=== PATIENT | male | born 1975 | race Hispanic/Latino ===

== ENCOUNTER 2016-12-16 17:02 | Emergency (ER) | payer BC ==
[2016-12-16] MEDS ORDERED: Naproxen 550 mg Tab PO STA (17:45)
[2016-12-16 17:54] VITALS: PULSE 89; RESP 16; TEMP 98.4; O2SAT 97; BMI 38.4
--- NOTE | 2016-12-16 17:55 | ED PDOC ---
Arrival/HPI - General Time Seen by Provider: 12/16/16 17:16 Historian: Patient - History of Present Illness Narrative History of Present Illness (Text): 12/16/16 17:45 A 41 year old male, whose past medical history includes , presents to the emergency department complaining of left lower wisdom tooth pain for several days. Patient reports he is visiting from [place]. He requests for antibiotics prior to visting dentist this week. Patient has no other complaints. No PMD Time/Duration: Other (several days) Symptom Onset: Sudden Symptom Course: Unchanged Past Medical History - Provider Review Nursing Documentation Reviewed: Yes - Infectious Disease Hx of Infectious Diseases: None - Psychiatric Hx Depression: No Hx Emotional Abuse: No Hx Physical Abuse: No Hx Substance Use: No - Anesthesia Hx Anesthesia: No - Suicidal Assessment Feels Threatened In Home Enviroment: No Family/Social History - Physician Review Nursing Documentation Reviewed: Yes Family/Social History: No Known Family HX Smoking Status: Current Some Days Smoker Hx Alcohol Use: Yes Hx Substance Use: No Allergies/Home Meds Allergies/Adverse Reactions: Allergies No Known Allergies Allergy (Verified 10/14/11 08:21) Review of Systems - Physician Review All systems were reviewed & negative as marked: Yes - Review of Systems Constitutional: Other (lower left wisdom tooth pain) Gastrointestinal: absent: Nausea, Vomiting Physical Exam - Systems Exam Head: Present: Atraumatic, Normocephalic Pupils: Present: PERRL Extroacular Muscles: Present: EOMI Conjunctiva: Present: Normal Mouth: No: Normal Teeth (carries to lower left lew), Other (no buccal swelling) Neck: Present: Normal Range of Motion Respiratory/Chest: Present: Clear to Auscultation, Good Air Exchange. No: Respiratory Distress, Accessory Muscle Use Cardiovascular: Present: Regular Rate and Rhythm, Normal S1, S2. No: Murmurs Abdomen: Present: Normal Bowel Sounds. No: Tenderness, Distention, Peritoneal Signs Back: Present: Normal Inspection Upper Extremity: Present: Normal Inspection. No: Cyanosis, Edema Lower Extremity: Present: Normal Inspection. No: Edema Neurological: Present: GCS=15, CN II-XII Intact, Speech Normal Skin: Present: Warm, Dry, Normal Color. No: Rashes Psychiatric: Present: Alert, Oriented x 3, Normal Insight, Normal Concentration Medical Decision Making ED Course and Treatment: 12/16/16 17:50 Impression: 41 year old male with left lower wisdom tooth pain. Physical exam shows no buccal swelling. Plan: -- Amoxicillin -- Naproxen -- Reassess and disposition Prior Visits: Notes and results from previous visits were reviewed. Patient was last seen in the emergency department on 12/02/2015 for left lower quadrant abdominal pain after eating. Patient was discharged home. Progress Notes: - Medication Orders Current Medication Orders: Discontinued Medications Amoxicillin (Amoxil 500 Mg Cap) 500 mg PO STAT STA PRN Reason: Protocol Stop: 12/16/16 17:46 Naproxen (Anaprox Ds) 550 mg PO STAT STA Stop: 12/16/16 17:46 - Scribe Statement The provider has reviewed the documentation as recorded by the Edilia Mohr Provider Scribe Attestation: All medical record entries made by the Scribe were at my direction and personally dictated by me. I have reviewed the chart and agree that the record accurately reflects my personal performance of the history, physical exam, medical decision making, and the department course for this patient. I have also personally directed, reviewed, and agree with the discharge instructions and disposition. Disposition/Present on Arrival - Present on Arrival History of DVT/PE: No History of Uncontrolled Diabetes: No Urinary Catheter: No History Surgical Site Infection Following: None - Disposition Diagnosis: Toothache Disposition: HOME/ ROUTINE Condition: STABLE Discharge Instructions (ExitCare): Dental Caries (ED), Toothache (ED) Additional Instructions: please follow up with dental. return to er with worsening symptoms or concerns. Prescriptions: Amoxicillin [Amoxil 500 mg Cap] 500 mg PO TID #21 cap Naproxen 500 mg PO BID PRN #14 tablet.dr SEXTON Reason: Pain, Mild (1-3) Referrals: [facility] [Outside] - Follow up with primary [facility] [Outside] - Follow up with primary [facility] [Outside] - Follow up with primary
[2016-12-16 18:10] VITALS: BP 139/84
== END 2016-12-16 18:00 | disposition home or self-care (01) ==
LOC: ED 17:02
DX: K08.89 Other specified disorders of teeth and supporting structures (principal)